=== PATIENT | female | born 1980 | race Caucasian/White ===

== ENCOUNTER 2016-10-20 00:12 | Emergency (ER) | payer SELFPAY ==
--- NOTE | 2016-10-20 00:38 | NUR ---
CALLED ARJUN MARMOLEJO; NO ANSWER.
--- NOTE | 2016-10-20 01:00 | NUR ---
CALLED AGAIN X4; NO ANSWER
--- NOTE | 2016-10-20 01:04 | NUR ---
INFORMED PT LEFT
== END 2016-10-20 01:05 | disposition left against medical advice (07) ==
LOC: ER 00:15
DX: Z53.21 Procedure and treatment not carried out due to patient leaving prior to being seen by health care provider (principal)